=== PATIENT | female | born 1980 | race Caucasian/White ===

== ENCOUNTER 2025-08-03 15:47 | Emergency (ER) | payer BC, SELFPAY ==
[2025-08-03 15:57] VITALS: BP 139/94; PULSE 92; RESP 20; TEMP 36.6; O2SAT 99
--- NOTE | 2025-08-03 15:58 | ED.ALLEREA ---
HPI - Allergic Reaction General Chief complaint: Allergic Reaction Stated complaint: allergic reaction Time Seen by Provider: 08/03/25 15:58 Source: patient Mode of arrival: ambulatory Limitations: no limitations History of Present Illness HPI narrative: Patient came to the ED by private car complaining of a scratchy feeling in the throat, trouble swallowing and feeling something weird in her throat started within 1 hour prior to arrival to the emergency room within half an hour from eating granola bar. History of allergy to cats. Patient denies skin rash, or trouble breathing. Related Data Home Medications ?Medication ?Instructions ?Recorded ?Confirmed ?Last Taken ?Type diroximel fumarate 231 mg 231 mg PO ONCE 08/03/25 Unknown History capsule,delayed release (Vumerity) Allergies Allergy/AdvReac Type Severity Reaction Status Date / Time No Known Allergies Allergy Verified 08/03/25 15:53 Review of Systems Review of Systems: All systems reviewed & are unremarkable except as noted in HPI and below Exam Narrative: General appearance: Well-developed, well-nourished, anxious, restless Skin: Normal color Head: Normocephalic, nontraumatic Eyes: Clear conjunctiva ENT: Oropharynx normal, ears normal, nose normal Neck: Supple, nontender Chest and respiratory: Airway patent, no respiratory distress, no accessory muscle use Heart: Regular rate/rhythm Abdomen: Soft, nontender, no organomegaly, quiet bowel sounds Vascular: Normal peripheral pulses, normal capillary refill. Musculoskeletal: Normal range of motion, nontender back Neurologic: Alert and oriented ?3, [employer] is normal as tested, no gross motor deficit Course Vital Signs Vital signs: Vital Signs Temperature 36.6 C 08/03/25 15:57 Pulse Rate 92 08/03/25 15:57 Respiratory Rate 20 08/03/25 15:57 Blood Pressure 139/94 H 08/03/25 15:57 Pulse Oximetry 99 08/03/25 15:57 Oxygen Delivery Room Air 08/03/25 15:57 Temperature 36.6 C 08/03/25 15:57 Pulse Rate 92 08/03/25 15:57 Respiratory Rate 20 08/03/25 15:57 Blood Pressure 139/94 H 08/03/25 15:57 Pulse Oximetry 99 08/03/25 15:57 Oxygen Delivery Room Air 08/03/25 15:57 [facility] Narrative Medical decision making narrative: Patient presents with allergic reaction, could be secondary to with no lumbar or secondary to something else specialty patient was coming from a vacation driving back home in [place]. In the ED patient received epinephrine, prednisone and Claritin with significant improvement. At the time of discharge patient almost asymptomatic. The pt was discharged to home.the pt,s condition upon discharge was fair,education was provided to the pt in reference to the final impression,discharge study results,treatment,prognosis and need for follow up . Differential Diagnosis Differential Diagnosis: Food allergy Critical Care Time Critical Care Time Critical Care Time: No Discharge Plan Discharge Clinical Impression: Allergic reaction Patient Disposition: Home Condition: Improved Instructions: Food Allergy (ED) Additional Instructions: Return if symptoms are worsening , call your family physician for appointment, take Tylenol as as needed for aches and pain, continue home medications. [id number] Zyrtec 10 mg once a day for 1 week Patient Language: Pashto Prescriptions: New prednisone 20 mg tablet 40 mg PO DAILY 3 Days Qty: 6 0RF No Action Vumerity 231 mg capsule,delayed release(DR/EC) 231 mg PO ONCE Follow-up/Referrals: UNKNOWN,DOCTOR [Non-Staff]
[2025-08-03] MEDS: LORATADINE 10 MG TABLET PO (16:04)
[2025-08-03] MEDS: EPINEPHrine HCL INJ 1 MG/ML AMPUL 0.3 MG IM (16:06)
[2025-08-03 16:42] VITALS: BP 132/74; PULSE 81; RESP 20; TEMP 36.7; O2SAT 98
== END 2025-08-03 16:47 | disposition home or self-care (01) ==
PROVIDERS: Emergency Provider Emergency Medicine; PCP Internal Medicine
DX: T78.19XA Other adverse food reactions, not elsewhere classified, initial encounter (principal); J02.9 Acute pharyngitis, unspecified
CPT/HCPCS: 96372; 99283; A9270; J0166; J7512